=== PATIENT | female | born 1955 | race American Indian/Alaskan Native ===

== ENCOUNTER 2019-06-04 05:43 | Day surgery (SDC) | payer BC ==
[2019-06-04] MEDS ORDERED: LACTATED RINGERS 1,000 ML IV SCH (06:00)
[2019-06-04] MEDS ORDERED: ANCEF/STERILE WATER 2 GM/20 ML 2 GM/20 ML SYRINGE IV SCH (06:00)
[2019-06-04] MEDS ORDERED: ceFAZolin 2 GM in NACL 0.9% 100 ML IV ONE (07:00)
[2019-06-04] MEDS ORDERED: MARCAINE 0.25% INFILTRATI ONE ×3 (07:12→07:50)
[2019-06-04] MEDS ORDERED: XYLOCAINE 1% 20 mL ONE (07:12)
--- NOTE | 2019-06-04 07:14 | Anesthesia Consultation ---
Anesthesia Consult and Med Hx Date of service: 06/04/19 - Airway Anesthetic Teeth Evaluation: Good ROM Head & Neck: Adequate Mental/Hyoid Distance: Adequate Mallampati Class: Class III Intubation Access Assessment: Possibly Difficult - Pulmonary Exam CTA: Yes - Cardiac Exam Cardiac Exam: RRR - Pre-Operative Health Status ASA Pre-Surgery Classification: ASA2 Proposed Anesthetic Plan: General, MAC - Pre-Anesthesia Comment Pre-Anesthesia Comments: GA vs MAC pending discussion with surgeon regarding scope of intended procedure. - Pulmonary Hx Smoking: No Hx Respiratory Symptoms: No Hx Sleep Apnea: No (IVAN PRE SCREEN HIGH RISK) - Cardiovascular System Hx Hypertension: Yes (took antihypertensives this morning) Hx Heart Attack/AMI: No Hx Percutaneous Transluminal Coronary Angioplasty (PTCA): No Hx Cardia Arrhythmia: Yes (hx palpitations with neg cardiac workup per patient) Hx Pacemaker: No Hx Valvular Heart Disease: No (normal TTE 2014) - Central Nervous System Hx Seizures: No CVA: No Hx Back Pain: Yes (SCIATIC PAIN) - Gastrointestinal Hx Gastroesophageal Reflux Disease: Yes (controlled) - Endocrine Hx Renal Disease: No Hx Liver Disease: No Hx Insulin Dependent Diabetes: No Hx Non-Insulin Dependent Diabetes: No Hx Thyroid Disease: No - Other Systems Hx Obesity: No - Additional Comments Anesthesia Medical History Comments: No hx anesthetic complications.
--- NOTE | 2019-06-04 07:14 | Anesthesia Day of Surgery ---
Anesthesia Day of Surgery - Day of Surgery Patient Examined: Yes Patient H&P Reviewed: Yes Patient is NPO: Yes
[2019-06-04] MEDS ORDERED: SUBLIMAZE IV PRN (07:30)
[2019-06-04] MEDS ORDERED: SUBLIMAZE ONE (07:31)
[2019-06-04] MEDS ORDERED: VERSED ONE (07:31)
[2019-06-04] MEDS ORDERED: XYLOCAINE 1% 20 mL INFILTRATI ONE ×2 (07:50)
[2019-06-04] MEDS ORDERED: VERSED IV NR (08:00)
--- NOTE | 2019-06-04 08:36 | Short Stay Summary ---
Short Stay Documentation Date of service: 06/04/19 - History Principal diagnosis: soft tissue mass L buttock H&P: obtained from office - Allergies and Medications Current Medications: Allergies Iodinated Contrast- Oral and IV Dye Allergy (Verified 05/29/19 16:44) Hives niacin Allergy (Verified 05/29/19 16:44) Hives Home Medications Medication Instructions Recorded Confirmed Last Taken Type Aspirin [Adult Aspirin] 81 mg PO DAILY 05/29/19 05/29/19 Unknown History Lansoprazole [Prevacid] 30 mg PO DAILY 05/29/19 05/29/19 Unknown History Pravastatin [Pravachol] 40 mg PO QHS 05/29/19 05/29/19 Unknown History Triamter/Hctz 37.5-25 mg 1 tab PO QDAY 05/29/19 05/29/19 Unknown History [Maxzide-25] Active Medications Fentanyl (Sublimaze) 50 mcg IV Q5MIN PRN PRN Reason: Pain , Severe (7-10) Stop: 06/04/19 18:00 Cefazolin Sodium (Ancef/Sterile Water 2 Gm/20 Ml) 2 gm in 20 mls @ 80 mls/hr IV PREOP LIGIA Stop: 06/04/19 23:59 Lactated Ringer's (Lactated Ringers) 1,000 mls @ 75 mls/hr IV DIRECT LIGIA Last Admin: 06/04/19 07:01 Dose: 75 mls/hr Documented by: Midazolam HCl (Versed) 2 mg IV PREOP NR Stop: 06/04/19 23:59 - Brief post op/procedure progress note Date of procedure: 06/04/19 Pre-op diagnosis: soft tissue mass L buttock Post-op diagnosis: same Procedure: excision soft tissue mass L buttock Anesthesia: MAC, local Findings: 1cm lipoma Surgeon: FELIPA HOFFMAN Estimated blood loss: minimal Pathology: list (soft tissue mass L buttock) Specimen disposition: to lab Condition: stable - Hospital course Hospital course: Pt observed in PACU and discharged to home in stable condition when criteria met - Disposition Condition at discharge: Good Disposition: DC-01 TO HOME OR SELFCARE Short Stay Discharge Plan Activity: no restrictions Diet: regular Wound: open to air, per your surgeon's advice Additional Instructions: SEE PRINTED DISCHARGE INSTRUCTIONS Follow up with: MATHEW KING MD [Primary Care Provider] - 7 Days Prescriptions: HYDROcodone/APAP 5-325 [[place] 5/325] 1 each PO Q8H PRN #5 tablet PRN Reason: Pain
[2019-06-04 09:02] VITALS: BP 131/75
--- NOTE | 2019-06-04 09:51 | Operative Report ---
PREOPERATIVE DIAGNOSIS: Soft tissue mass, left buttock. POSTOPERATIVE DIAGNOSIS: Soft tissue mass, left buttock. PROCEDURE: Excision of soft tissue mass, left buttock. ANESTHESIA: MAC local. FINDINGS: A 1 cm lipoma. SURGEON: Telma Cabral DO. ESTIMATED BLOOD LOSS: Minimal. PATHOLOGY: Soft tissue mass, left buttock. SPECIMEN DISPOSITION: To lab. CONDITION DISPOSITION: The patient is stable to PACU. HISTORY OF PRESENT ILLNESS AND INDICATIONS: The patient is a 64-year-old female who presented to the office with complaints of a lump on her left lower buttock area. The lump had been present for a long time; however, was fluctuating in size and becoming more tender, especially with sitting for long periods of time. The patient wanted to proceed with excision. I discussed all risks, benefits, and alternatives of surgery with the patient and questions answered. Consent was obtained. PROCEDURE IN DETAIL: The patient was identified in the preoperative area, taken back to the operating room, placed on the operating table in supine position. After anesthesia was induced, she was turned to the left lateral decubitus position and was supported using a beanbag and all bony prominences were padded. The left buttock was prepped and draped in the usual sterile fashion. Timeout was performed. A local anesthetic was infiltrated into the skin and subcutaneous tissue at the intended incision site. An elliptical incision was made at the site of the soft tissue mass using a 15 blade and dissection carried down carefully through skin and subcutaneous tissue using electrocautery. Once the mass was identified, it was circumferentially dissected free from surrounding tissue and completely excised. The mass was lobulated 1 cm fatty tumor consistent with a lipoma. The scalp subcutaneous tissue was irrigated. Hemostasis was achieved using electrocautery. Once hemostasis was ensured, the wound was closed using 4-0 Monocryl subcuticular interrupted stitches and skin glue. At the end of the case, all sponge, instrument, sharp counts were correct x 2. The specimen was passed off the table. The patient was awoken from anesthesia, transferred to a stretcher, and taken to PACU in stable condition. JOB# [id number] NK/NTS
--- NOTE | 2019-06-04 11:01 | Post Anesthesia Evaluation ---
- Post Anesthesia Evaluation Patient Participated: Yes Airway Patent: Yes Stable Respiratory Function: Yes Nausea/Vomiting: No Temp > 96.8F: Yes Pain Manageable: Yes Adequeate Hydration: Yes Anesthesia Complications: No Block Receding Appropriately: Not Applicable Patient on Ventilator: No
== END 2019-06-04 09:30 | disposition home or self-care (01) ==
LOC: OR 05:43
PROVIDERS: ATTEND Surgery
DX: M79.89 Other specified soft tissue disorders (principal); E78.00 Pure hypercholesterolemia, unspecified; I10 Essential (primary) hypertension; K21.9 Gastro-esophageal reflux disease without esophagitis; Z91.041 Radiographic dye allergy status; Z79.899 Other long term (current) drug therapy; Z79.82 Long term (current) use of aspirin; Z88.8 Allergy status to other drugs, medicaments and biological substances; Z98.51 Tubal ligation status; Z98.890 Other specified postprocedural states; Z86.2 Personal history of diseases of the blood and blood-forming organs and certain disorders involving the immune mechanism
CPT/HCPCS: 21930; 36415; 84132; 88304; J0690; J2250; J3010; J7120

== ENCOUNTER 2020-10-28 12:39 | Outpatient (CLI) | payer BC ==
--- NOTE | 2020-10-28 14:28 | Mammography Report ---
LEFT DIAGNOSTIC MAMMOGRAM INDICATION: Status post left breast stereotactic biopsy COMPARISON: 09/28/2020. FINDINGS: Left breast CC and LM projection mammograms were obtained. These document the accurate loca tion of a biopsy marker at the site of recent stereotactic biopsy. A few scattered residual calcifica tions are noted in the surrounding tissue. IMPRESSION: Left breast mammographic images documenting accurate location of a biopsy marker status post left allan ast stereotactic biopsy. BI-RADS Category 4: Suspicious for Malignancy. Signer Name: Ronnell Singh MD Signed: 10/28/2020 2:23 PM Workstation Name: [id number]
--- NOTE | 2020-10-28 16:00 | Mammography Report ---
PERCUTANEOUS STEREOTACTIC-GUIDED LEFT BREAST BIOPSY WITH MARKER PLACEMENT HISTORY: Left breast calcifications. CONSENT: Technique, risks and alternatives were discussed with the patient and informed written conse nt obtained. Patient reports taking 81 mg of aspirin daily. We discussed that this does increase the risk of bleeding. PROCEDURE: The patient was placed in the prone position on the biopsy table. The calcifications at the 3:00 posi tion in the left breast were targeted mammographically. Wrecking Supervisor and stereo pair images were acquired to generate the computer-derived coordinates for targeting. The skin overlying the chosen biopsy site w ere cleansed with Betadine. The skin and superficial soft tissues were anesthetized with a small josephine unt of buffered 1% lidocaine. The deeper soft tissues were anesthetized with buffered 1% lidocaine w ith epinephrine. A small dermatotomy was created through which the [facility] biopsy device was placed. Pre and post fire st ereo pair images were acquired to confirm appropriate needle trajectory. Using vacuum assistance, mul tiple core specimen samples were acquired. A post procedure specimen radiograph confirmed calcificati ons within core specimen samples. A biopsy marker was deposited at the biopsy site, and appropriate biopsy marker deposition confirmed via a stereo pair image. Manual pressure was applied at the biopsy site to achieve hemostasis. The incision margins were appro ximated with Steri-Strips. Postprocedure care instructions were administered in both verbal and writt en forms. The patient voiced understanding and departed the [facility] in stable, satisfactory con dition. IMPRESSION Technically successful stereotactic biopsy of the left breast calcifications at the 3:00 position wit h accurate placement of a biopsy marker. An addendum will be added to this report once pathology results are available. Signer Name: Ronnell Singh MD Signed: 10/28/2020 3:56 PM Workstation Name: [id number]
== END 2020-10-28 12:40 | disposition home or self-care (01) ==
LOC: SPVWC 12:39
PROVIDERS: ATTEND Surgery
DX: R92.1 Mammographic calcification found on diagnostic imaging of breast (principal); N60.12 Diffuse cystic mastopathy of left breast; R92.0 Mammographic microcalcification found on diagnostic imaging of breast; E78.00 Pure hypercholesterolemia, unspecified; I10 Essential (primary) hypertension; K21.9 Gastro-esophageal reflux disease without esophagitis; Z79.899 Other long term (current) drug therapy; Z79.82 Long term (current) use of aspirin; Z91.041 Radiographic dye allergy status; Z88.8 Allergy status to other drugs, medicaments and biological substances; Z98.51 Tubal ligation status; Z98.890 Other specified postprocedural states
CPT/HCPCS: 19081; 77065; 88305; A4648

== ENCOUNTER 2021-05-06 10:22 | Outpatient (CLI) | payer BC ==
--- NOTE | 2021-05-06 11:04 | Mammography Report ---
DIGITAL DIAGNOSTIC MAMMOGRAM WITH CAD, 05/06/2021 INDICATION: Postbiopsy evaluation 6 months. TECHNIQUE: Digital left mammographic imaging was performed. This examination was interpreted with the benefit of Computer-aided Detection analysis. COMPARISON: 10/28/2020 FINDINGS: Breast Density: The breasts are heterogeneously dense, which may obscure small masses. There is no evidence of dominant mass, suspicious calcifications or architectural distortion in the l eft breast. A biopsy clip and a few scattered microcalcifications are unchanged. IMPRESSION: Follow up recommendation: Back to schedule. Yearly mammogram should be performed in 6 months BI-RADS Category 2: Benign. A "normal" or negative report should not discourage follow up or biopsy of a clinically significant f inding. A written summary of these findings will be mailed to the patient. The patient will be entered into a mammography reporting system which will generate a reminder letter for the patient's next appointmen t at the appropriate interval. According to the [employer], yearly mammograms are recommended starting at age 40 and continuing as long as a woman is in good health. Breast MRI is recommended for women with an marlyn roximately 20-25% or greater lifetime risk of breast cancer, including women with a strong family his tory of breast or ovarian cancer and women who have been treated for Hodgkin's disease. Signer Name: Ari Perez MD Signed: 05/06/2021 11:00 AM Workstation Name: [id number]
== END 2021-05-06 10:23 | disposition home or self-care (01) ==
LOC: SPVWC 10:22
PROVIDERS: ATTEND Surgery
DX: R92.2 Inconclusive mammogram (principal)

== ENCOUNTER 2021-11-08 10:23 | Outpatient (CLI) | payer BC ==
--- NOTE | 2021-11-09 13:46 | Mammography Report ---
DIGITAL SCREENING MAMMOGRAM WITH CAD, 11/08/2021 CLINICAL INFORMATION / INDICATION: Routine screening TECHNIQUE: Digital bilateral 2D mammography was obtained in the craniocaudal and mediolateral obliqu e projections. This examination was interpreted with the benefit of Computer-Aided Detection analysis . COMPARISON: 08/22/2019, 09/11/2019, 10/28/2020 FINDINGS: Breast Density: There are scattered areas of fibroglandular density. No dominant mass, suspicious calcifications, or architectural distortion in either breast. Left biopsy changes are again noted. IMPRESSION: No mammographic evidence of malignancy. Follow up recommendation: Routine yearly BI-RADS Category 2: BENIGN. A "normal" or negative report should not discourage follow up or biopsy of a clinically significant f inding. A written summary of these findings will be mailed to the patient. The patient will be entered into a mammography reporting system which will generate a reminder letter for the patient's next appointmen t at the appropriate interval. The [employer] recommends yearly mammograms starting at age 40 and continuing as l ford as a woman is in good health. Breast MRI is recommended for women with an approximate 20-25% or greater lifetime risk of breast cancer, including women with a strong family history of breast or ova marivel cancer or who have been treated for Hodgkin's disease. Signer Name: Lester Cisneros MD Signed: 11/09/2021 1:42 PM Workstation Name: [id number]
== END 2021-11-08 10:24 | disposition home or self-care (01) ==
LOC: MAMMO 10:23
PROVIDERS: ATTEND Internal Medicine
DX: Z12.31 Encounter for screening mammogram for malignant neoplasm of breast (principal); N64.89 Other specified disorders of breast
CPT/HCPCS: 77067